=== PATIENT | female | born 1985 | race Caucasian/White ===

== ENCOUNTER → 2016-10-29 | Outpatient (CLI) | payer MEDICARE, MEDICAID ==
[2016-10-29 07:57] LABS: BASOPHIL # 0.1 K/uL (0.0-0.2); BASOPHIL % 0.7 %; EOSINOPHIL # 0.1 K/uL (0.0-0.5); EOSINOPHIL % 1.8 %; HEMATOCRIT 44.1 % (33.0-46.0); HEMOGLOBIN 14.8 g/dL (11.0-15.0); IMMATURE GRANULOCYTE % 0.1 %; LYMPHOCYTE # 2.8 K/uL (0.8-4.0); LYMPHOCYTE % 40.9 %; MCH 31.2 pg (27.0-34.0); MCHC 33.6 gm/dL (32.0-36.5); MONOCYTE # 0.5 K/uL (0.0-1.0); MONOCYTE % 6.9 %; MPV 10.6 fl (9.4-12.4); NEUTROPHIL # (ANC) 3.4 K/uL (1.8-7.8); NEUTROPHIL % 49.6 %; NRBC % 0 /100WBC (0-0.00); PLATELET COUNT 282 K/uL (150-450); RBC 4.74 M/uL (3.50-5.50); RDW-CV 11.8 % (11.9-14.6); WBC 6.8 K/uL (4.0-11.0)
[2016-10-29 08:12] LABS: ALBUMIN 3.1 gm/dL (3.5-5.0); ALK PHOS 65 IU/L (33-138); ALT 22 IU/L (12-78); ANION GAP 12.9 (10.0-19.0); AST 16 IU/L (10-40); BLOOD UREA NITROGEN 10 mg/dL (6-24); CALCIUM 8.8 mg/dL (8.5-10.5); CHLORIDE 110 mMol/L (96-110); CO2 24 mMol/L (22-32); CREATININE 0.5 mg/dL (0.5-1.1); ESTIMATED GFR (MDRD EQUATION) > 60; POTASSIUM 3.9 mMol/L (3.7-5.1); SODIUM 143 mMol/L (135-145); TOTAL BILIRUBIN 0.2 mg/dL (0.0-1.5); TOTAL PROTEIN 6.6 g/dL (6.0-8.4)
== END ==
LOC: LBETH 10-28 08:21
PROVIDERS: Physician Assistant
DX: R10.9 Unspecified abdominal pain (principal); Z79.899 Other long term (current) drug therapy; L50.9 Urticaria, unspecified